=== PATIENT | male | born 1975 | race Caucasian/White ===

== ENCOUNTER → 2017-10-14 | Outpatient (CLI) | payer BC ==
--- NOTE | 2017-10-14 16:45 | US ---
EXAMINATION TYPE: US venous doppler duplex LE LT DATE OF EXAM: 10/14/2017 4:35 PM COMPARISON: NONE CLINICAL HISTORY: Left Lower Foot and Calf Pain M79.672. Swelling and bruising left ankle, no known p rior DVT, not on blood thinners SIDE PERFORMED: Left TECHNIQUE: The lower extremity deep venous system is examined utilizing real time linear array sonog negra with graded compression, doppler sonography and color-flow sonography. VESSELS IMAGED: External Iliac Vein (EIV) Common Femoral Vein Deep Femoral Vein Greater Saphenous Vein * Femoral Vein Popliteal Vein Small Saphenous Vein * Proximal Calf Veins (* superficial vessels) Left Leg: Negative for DVT Results called to Lisha at Dr's office at time of exam Grayscale, color doppler, spectral doppler imaging performed of the deep veins of the left lower extr emity. There is normal flow, compressibility, vascular waveforms. IMPRESSION: No ultrasound evidence for acute DVT in the left lower extremity.
== END ==
LOC: RADUSWWP 16:09
PROVIDERS: ATTEND Orthopaedic Surgery
DX: M25.572 Pain in left ankle and joints of left foot (principal)

== ENCOUNTER → 2019-08-21 | Outpatient (CLI) | payer BC ==
[2019-08-21 08:23] LABS: HGB 15.2 gm/dL (13.0-17.5); MCH 29.9 pg (25.0-35.0); MCHC 33.1 g/dL (31.0-37.0); MCV 90.3 fL (80.0-100.0); Mean Platelet Volume 7.4; Platelet Count 216 k/uL (150-450); RDW 12.9 % (11.5-15.5); WBC 5.8 k/uL (3.8-10.6)
[2019-08-21 10:32] LABS: ALT 34 U/L (10-49); AST 29 U/L (14-35); African American GFR (CKD) 85.9 (60.0-200.0); Albumin/Globulin Ratio 2.94 (1.60-3.17); Alkaline Phosphatase 60 U/L (41-126); Calcium 9.7 mg/dL (8.7-10.3); Carbon Dioxide 30.3 mmol/L (21.6-31.8); Chloride 106 mmol/L (96-109); Chol/HDL Ratio 2.77; Cholesterol 227 mg/dL (0-200); Globulin 1.6 g/dL (1.6-3.3); Glucose 108 mg/dL (70-110); Non-African American GFR(CKD) 74.1 (60.0-200.0); Potassium 4.7 mmol/L (3.5-5.5); Sodium 141 mmol/L (135-145); Total Bilirubin 0.7 mg/dL (0.2-1.2); Total Protein 6.3 g/dL (6.2-8.2); Triglycerides <50.0 mg/dL (0.0-149.0); Uric Acid 6.1 mg/dL (3.7-8.7)
== END | disposition home or self-care (01) ==
LOC: LABWHC1 07:38
PROVIDERS: ATTEND Family Medicine
DX: Z00.00 Encounter for general adult medical examination without abnormal findings (principal); M10.9 Gout, unspecified; R53.83 Other fatigue
CPT/HCPCS: 36415; 80053; 80061; 82306; 82607; 84439; 84443; 84550; 85027

== ENCOUNTER → 2020-09-08 | Outpatient (CLI) | payer BC ==
[2020-09-09 04:06] LABS: African American GFR (CKD) 106.4 (60.0-200.0); Albumin 5.2 g/dL (3.80-4.90); Albumin/Globulin Ratio 2.6 (1.60-3.17); Anion Gap 14.9 mmol/L (4.00-12.00); Calcium 10.3 mg/dL (8.7-10.3); Carbon Dioxide 23.1 mmol/L (21.6-31.8); Chol/HDL Ratio 3.48; Non-African American GFR(CKD) 91.8 (60.0-200.0); Total Bilirubin 0.4 mg/dL (0.2-1.2); Total Protein 7.2 g/dL (6.2-8.2)
== END | disposition home or self-care (01) ==
LOC: LABWHC1 10:51
PROVIDERS: ATTEND Family Medicine
DX: I26.99 Other pulmonary embolism without acute cor pulmonale (principal)
CPT/HCPCS: 36415; 80053; 80061; 82306; 82607; 84550

== ENCOUNTER → 2024-04-21 | Outpatient (CLI) | payer BC ==
[2024-04-21 15:49] VITALS: BP 133/83; PULSE 64; RESP 16; TEMP 97.9
--- NOTE | 2024-04-21 16:10 | P.SLEEP ---
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 The patient has noted by his that he snores very loud and stops breathing and the patient has been complaining of excessive tiredness and sleepiness during the day. Is affecting his day-to-day functionality. The patient has currently an [place] score of 18. He has gained around 20 pounds over the past 10 years. Sometimes he struggles to stay awake while driving. However, the patient has not been involved in a motor vehicle accidents because of feeling drowsy or sleepy. Does not drink alcohol. Does not smoke. He has hypertension hyperlipidemia previous history of melanoma that has been surgically resected. No sleepwalking. No sleep talking. No insomnia. No nocturia. No restlessness in lower extremities. No heartburn. No nighttime chest pain or shortness of breath. No problems with concentration or memory. No sleepwalking. No sleep talking. No other symptoms of parasomnia. No head trauma. No substance abuse. Review of Systems Constitutional: Reports daytime sleepiness, Reports fatigue, Reports weight gain Eyes: denies as per HPI, denies blurred vision, denies bulging eye, denies decreased vision, denies diplopia, denies discharge, denies dry eye, denies irritation, denies itching, denies pain, denies photophobia, denies loss of peripheral vision, denies loss of vision, denies tunnel vision/blind spots Ears: deny: decreased hearing, ear discharge, earache, tinnitus Ears, nose, mouth and throat: Reports as per HPI Breasts: absent: as per HPI, gynecomastia Cardiovascular: Reports as per HPI Respiratory: Reports as per HPI Gastrointestinal: Reports as per HPI Genitourinary: Reports as per HPI Musculoskeletal: Reports as per HPI Musculoskeletal: absent: ankle pain, ankle stiffness, ankle swelling, as per HPI, elbow pain, elbow stiffness, elbow swelling, foot pain, foot stiffness, foot swelling, hand pain, hand stiffness, hand swelling, hip pain, hip stiffness, hip swelling, knee pain, knee stiffness, knee swelling, shoulder pain, shoulder stiffness, shoulder swelling, wrist pain, wrist stiffness, wrist swelling Integumentary: Reports as per HPI Neurological: Reports as per HPI Psychiatric: Reports hypersomnia, Reports sleep disturbances Endocrine: Reports as per HPI, Reports fatigue Hematologic/Lymphatic: Reports as per HPI Allergic/Immunologic: Reports as per HPI Past Medical History Past Medical History: Cancer, Hyperlipidemia, Hypertension Additional Past Medical History / Comment(s): Melanoma - r lower leg, snoring History of Any Multi-Drug Resistant Organisms: None Reported Additional Past Surgical History / Comment(s): MELANOMA - R LOWER LEG Past Psychological History: Unable to Obtain Smoking Status: Never smoker Past Alcohol Use History: Occasional Past Drug Use History: None Reported - Past Family History Father Additional Family Medical History / Comment(s): SNORING (BROTHERS ALSO SNORE) Mother Family Medical History: Hypertension Physical Exam Vitals: Vital Signs Temp Pulse Resp BP Pulse Ox 04/21/24 15:48 97.9 F 64 16 133/83 97 Intake and Output 04/21/24 04/21/24 04/21/24 06:59 14:59 22:59 Other: Weight 124.001 kg The patient appeared well nourished and normally developed. Vital signs as documented. Head exam is unremarkable. No scleral icterus or corneal arcus noted. Neck is without jugular venous distension, thyromegaly, or carotid bruits. Carotid upstrokes are brisk bilaterally. The patient has chronic the posterior pharynx with a Mallampati class IV Lungs are clear to auscultation and percussion. Cardiac exam reveals the PMI to be normally sized and situated. Rhythm is r egular. First and second heart sounds normal. No murmurs, rubs or gallops. Abdominal exam reveals normal bowel sounds, no masses, no organomegaly and no aortic enlargement. Extremities are nonedematous and both femoral and pedal pulses are normal. Examination of the skin revealed no evidence of significant rashes, suspicious appearing nevi or other concerning lesions. Neurologically, the patient is awake and alert and the patient does not have any focal neurological deficit. Cranial nerves are essentially intact. Assessment and Plan Plan: Hypersomnia with features to suggest obstructive sleep apnea with loud snoring, witnessed apneas and sleep fragmentation. The patient has an [place] score of 18. Obesity with a BMI of 39.1 Hypertension Hyperlipidemia History of melanoma involving the right lower extremity, surgically resected Plan High clinical suspicion for obstructive sleep apnea. Will perform a home sleep study to evaluate the presence of sleep apnea and decide a treatment accordingly Encourage weight loss, current body mass index is 39 Implement good sleep hygiene measures Maintain regular sleep schedule Avoid drinking at least 3 hours prior to going to bed Avoid driving especially when feeling drowsy or sleepy Will continue to follow Sleep Note - Sleep Data ESS Total: 18 - Sleep Note Sleep Note: Temperature: 97.9 F Pulse Rate: 64 Respiratory Rate: 16 Blood Pressure: 133/83 SpO2: 97 Height: 5 ft 10 in Weight: 124.001 kg BMI: Neck Circumference: 19.2
== END ==
LOC: 3 N SLEEP 14:46
PROVIDERS: ATTEND Internal Medicine Critical Care Medicine
CPT/HCPCS: 99211

== ENCOUNTER → 2024-04-28 | Outpatient (CLI) | payer BC ==
--- NOTE | 2024-05-05 22:35 | P.PCN ---
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 The patient has noted by his that he snores very loud and stops breathing and the patient has been complaining of excessive tiredness and sleepiness during the day. Is affecting his day-to-day functionality. The patient has currently an [place] score of 18. He has gained around 20 pounds over the past 10 years. Sometimes he struggles to stay awake while driving. However, the patient has not been involved in a motor vehicle accidents because of feeling drowsy or sleepy. Does not drink alcohol. Does not smoke. He has hypertension hyperlipidemia previous history of melanoma that has been surgically resected. No sleepwalking. No sleep talking. No insomnia. No nocturia. No restlessness in lower extremities. No heartburn. No nighttime chest pain or shortness of breath. No problems with concentration or memory. No sleepwalking. No sleep talking. No other symptoms of parasomnia. No head trauma. No substance abuse. Physical findings The patient has a weight of 273 pounds with a body mass index of 39.1 Technical description the beModel ApneaLink system was used to complete his home sleep study. This is a type III Home sleep study evaluation. This study duration was 8 hours and 47 minutes. The study started at 10:58 PM and the study ended at 8:45 AM. There was a total of 6 hours and 25 minutes of flow monitoring and 6024 minutes of oxygen saturation monitoring. Results The respiratory analysis showed a total of 10 obstructive apneas and 57 obstructive hypopneas and the resulting AHI was 10.4 consistent with mild obstructive sleep apnea Oxygenation analysis The patient had a baseline pulse ox while awake of 96%. Average pulse ox during sleep was 92% and the lowest pulse ox was 73%. Patient spent approximately 7 minutes of sleep time below pulse ox of 89% Cardiac summary The average heart rate was 68 with a minimum heart rate of 51 and a maximum heart rate of 237 Assessment Obstructive sleep apnea, mild with an AHI of 10.4 Hypersomnia with features to suggest obstructive sleep apnea with loud snoring, witnessed apneas and sleep fragmentation. The patient has an [place] score of 18 Obesity with a BMI of 39.1 Hypertension Hyperlipidemia History of melanoma involving the right lower extremity, surgically resected Plan Symptomatic mild obstructive sleep apnea, will benefit from CPAP therapy and the patient will be encouraged to come into the sleep center to undergo a CPAP titration Encourage weight loss, current body mass index is 39 Implement good sleep hygiene measures Maintain regular sleep schedule Avoid drinking at least 3 hours prior to going to bed Avoid driving especially when feeling drowsy or sleepy Will continue to follow
== END ==
LOC: 3 N SLEEP 10:53
PROVIDERS: ATTEND Internal Medicine Critical Care Medicine
DX: G47.33 Obstructive sleep apnea (adult) (pediatric) (principal); G47.10 Hypersomnia, unspecified; G47.8 Other sleep disorders; E66.9 Obesity, unspecified; I10 Essential (primary) hypertension; E78.5 Hyperlipidemia, unspecified; Z85.820 Personal history of malignant melanoma of skin; Z68.39 Body mass index [BMI] 39.0-39.9, adult

== ENCOUNTER 2024-05-21 19:50 | Outpatient (CLI) | payer BC ==
--- NOTE | 2024-05-26 00:34 | P.PCN ---
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 The patient has noted by his that he snores very loud and stops breathing and the patient has been complaining of excessive tiredness and sleepiness during the day. Is affecting his day-to-day functionality. The patient has currently an [place]rock[place] score of 18. He has gained around 20 pounds over the past 10 years. Sometimes he struggles to stay awake while driving. However, the patient has not been involved in a motor vehicle accidents because of feeling drowsy or sleepy. Does not drink alcohol. Does not smoke. He has hypertension hyperlipidemia previous history of melanoma that has been surgically resected. No sleepwalking. No sleep talking. No insomnia. No nocturia. No restlessness in lower extremities. No heartburn. No nighttime chest pain or shortness of breath. No problems with concentration or memory. No sleepwalking. No sleep talking. No other symptoms of parasomnia. No head trauma. No substance abuse. The patient underwent a home sleep study and the patient was found to have mild obstructive sleep apnea with an AHI of 10.4. The patient is coming in for a CPAP titration study. Noted his sleep quality is poor and the patient is having sleep fragmentation with chronic hypersomnia sleepiness with an Throckmorton score of 18. Pertinent physical findings Height is 5 feet and 10 inches, weight is 273 pounds with a body mass index of 39.2 Technical description The patient was studied using a standard complex polysomnography protocol that included recording of the Lead II EKG, Central, occipital and frontal EEG, right and left outer canthus EOG, submental EMG, right and left anterior tibialis EMG, respiratory airflow by thermocouple and or pressure/flow transducer, respiratory efforts by abdominal and thoracic PVDF belts, oxygen saturation by cable oximetry. Position by observation synchronized the PSG. Equipment used: [employer]. Sleep architecture The total recording duration was 411.5 minutes. Total sleep time was 383.5 minutes. The overall sleep efficiency was 93.2%. The latency to sleep onset was 7.5 minutes and the latency to REM sleep was 69.5 minutes. The sleep architecture was characterized by 2.1% stage I, 62.7% stage II, 8% stage III and a total of 27.2% REM sleep. The total arousal index was 4.1. The wake after sleep onset time was 20 minutes CPAP titration summary The patient was started on CPAP therapy initially at a pressure of 5 cm of water and the pressure was gradually increased by increments of 1 cm to reach a maximum CPAP pressure of 11 cm of water. This was a very successful titration. The patient was studied in various body positions. Patient was also started in REM and non-REM sleep. A pressure of 11 cm of water, there was complete elimi [place] of the obstructive respiratory events without any significant nocturnal oxygen saturations. Sleep continuity summary Patient had a total of 26 arousals with an index of 4.1. The respiratory a rousal index was 0 Periodic limb movement The patient a total of 125 periodic limb movement activity with an index of 19.6. There was only 1 periodic limb movement activity with a arousal with an index of 0. 2 Cardiac summary The average heart rate was 67 with a minimum heart rate of 62 and a maximum heart rate of 74 Assessment Obstructive sleep apnea, mild with an AHI of 10.4 and the patient underwent a successful CPAP titration with elevation of the obstructive respiratory events at the completion of the titration. Hypersomnia with features to suggest obstructive sleep apnea with loud snoring, witnessed apneas and sleep fragmentation. The patient has an Throckmorton score of 18 Obesity with a BMI of 39.1 Hypertension Hyperlipidemia History of melanoma involving the right lower extremity, surgically resected Plan Initiate CPAP therapy at a pressure of 11 cm of water with a C-Flex of 3. The patient will be also offered an AirFit F 30 I medium size fullface mask. Encourage weight loss, current body mass index is 39 Implement good sleep hygiene measures Maintain regular sleep schedule Avoid drinking at least 3 hours prior to going to bed Avoid driving especially when feeling drowsy or sleepy Will continue to follow and the patient was seen back in the office in 30 to 90 days to assess clinical response and compliancy.
== END 2024-05-22 05:30 | disposition home or self-care (01) ==
LOC: 3 N SLEEP 19:50
PROVIDERS: ATTEND Internal Medicine Critical Care Medicine
DX: Z08 Encounter for follow-up examination after completed treatment for malignant neoplasm (principal); G47.33 Obstructive sleep apnea (adult) (pediatric); G47.10 Hypersomnia, unspecified; I10 Essential (primary) hypertension; E78.5 Hyperlipidemia, unspecified; E66.9 Obesity, unspecified; G47.8 Other sleep disorders; Z85.820 Personal history of malignant melanoma of skin; Z98.890 Other specified postprocedural states; Z68.39 Body mass index [BMI] 39.0-39.9, adult
CPT/HCPCS: 95811

== ENCOUNTER 2025-01-24 22:21 | Emergency (ER) | payer BC ==
[2025-01-24 22:28] VITALS: TEMP 97.8
--- NOTE | 2025-01-24 23:14 | ED ---
General Adult HPI - General Chief complaint: Syncope Stated complaint: Syncope Time Seen by Provider: 01/24/25 22:23 Source: patient, EMS Mode of arrival: EMS - History of Present Illness Initial comments: Patient is a 49-year-old male, past medical history of hypertension presenting today for syncopal episode. Patient states that he was outside throughout the day today in the heat at the [place]" festival. Afterwards they went out on his boat and he had a few alcoholic beverages. They returned home and shortly for eating dinner patient got up from the [facility] and upon walking towards his bedroom suddenly lost consciousness. He did state he had mildly headedness prior to this. He does not believe he hit his head. He denies headache or neck pain. He is not on blood thinners. This is never happened before. Patient's witnessed the fall, and upon walking over him his eyes were open and he was awake and alert, had returned to baseline. EMS did report the patient was hypotensive on their arrival and his symptoms improved with IV fluid administration. Patient is not on blood thinners. Denies history of PE or DVT. No history of clotting disorders., Is a non- smoker. No history of recently treated malignancy in the last 6 months. No recent travel surgery hospitalization. Is not on hormone replacement therapy. Currently denies chest pain, difficulty in breathing, numbness, focal weakness, changes in vision, dizziness, abdominal pain, nausea, vomiting, fevers, diarrhea, melena, hematochezia - Related Data Allergies Allergy/AdvReac Type Severity Reaction Status Date / Time No Known Allergies Allergy Verified 01/24/25 22:28 Review of Systems ROS Statement: Those systems with pertinent positive or pertinent negative responses have been documented in the HPI. ROS Other: All systems not noted in ROS Statement are negative. Past Medical History Past Medical History: Cancer, Hyperlipidemia, Hypertension Additional Past Medical History / Comment(s): Melanoma - r lower leg, snoring History of Any Multi-Drug Resistant Organisms: None Reported Additional Past Surgical History / Comment(s): MELANOMA - R LOWER LEG Past Psychological History: Unable to Obtain Smoking Status: Never smoker Past Alcohol Use History: Occasional Past Drug Use History: None Reported - Past Family History Father Additional Family Medical History / Comment(s): SNORING (BROTHERS ALSO SNORE) Mother Family Medical History: Hypertension General Exam - General Exam Comments Initial Comments: PE: CONSTITUTIONAL: [no apparent distress, well appearing] SKIN: [warm, dry, no jaundice, hives or petechiae] EYES:[ pupils are equally round, extraocular movements intact without nystagmus, clear conjunctiva, non-icteric sclera] HENT: [normocephalic, atraumatic, moist mucus membranes, oropharynx clear without exudates] NECK: , [Full range of motion, normal appearance] no midline spinal tenderness palpation PULMONARY: [clear to auscultation without wheezes, rhonchi, or rales, normal excursion, no accessory muscle use and no stridor] CARDIOVASCULAR:[ regular rate, rhythm, normal S1 and S2. No appreciated murmurs, rubs or gallops. Strong radial pulses with intact distal perfusion. No lower extremity edema] GASTROINTESTINAL: [soft, active bowel sounds throughout, non-tender, non- distended, no palpable masses, no rebound or guarding. No hepatosplenomegaly] GENITOURINARY: MUSCULOSKELETAL: [Extremities have no gross deformity, no edema, redness, or swelling. No calf swelling ] NEUROLOGIC: [_a/o x 3, GCS 15, normal mentation and speech. Moves all extremities x 4 without motor or sensory deficit] PSYCHIATRIC:[ _normal mood and affect, thought process is clear and linear] Course Vital Signs 01/24/25 01/24/25 01/25/25 22:23 23:33 00:32 Temperature 97.8 F Pulse Rate 81 76 73 Respiratory 18 18 20 Rate Blood Pressure 87/66 95/51 101/58 O2 Sat by Pulse 93 L 97 94 L Oximetry EKG Findings - EKG Comments: EKG Findings:: Sinus rhythm rate 81 bpm normal axis, normal intervals, no significant ST elevations or depressions no arrhythmia, no Brugada pattern or delta waves Medical Decision Making - Medical Decision Making Was pt. sent in by a medical professional or institution (, PA, LIVESTOCK BRANDS INSPECTOR, urgent care, hospital, or fpc...) When possible be specific @ -[No] Did you speak to anyone other than the patient for history (EMS, parent, family, police, friend...)? What history was obtained from this source @ -[No] Did you review nursing and triage notes (agree or disagree)? Why? @ -[I reviewed nursing and triage notes]-Triage note states patient presents following a syncopal episode from standing, minimal loss of consciousness no pain no blood thinners Were old charts reviewed (outside hosp., previous admission, EMS record, old EKG, old radiological studies, urgent care reports/EKG's, fpc records)? Report findings @ -[Medical records reviewed]Patient had ultrasound for DVT done on 10/14/17 showed no DVT Differential Diagnosis (chest pain, altered mental status, abdominal pain women, abdominal pain men, vaginal bleeding, weakness, fever, dyspnea, syncope, headache, dizziness, GI bleed, back pain, seizure, CVA, palpatations, mental health, musculoskeletal)? Differential diagnosis remains broad however top considerations include Valvular disease, hypertrophic cardiomyopathy, pulmonary embolism, tamponade, tachycardia, bradycardia, MO, hypovolemia, hemorrhage, dissection, anemia, intracranial hemorrhage, seizure, hypoglycemia, carbon monoxide poisoning, this is not meant to be an all-inclusive list. EKG interpreted by me (3pts min.). @ -[As above] X-rays interpreted by me (1pt min.). @ -Reviewed chest x-ray see no evidence of consolidations, cardiomegaly or pneumothorax CT interpreted by me (1pt min.). @ -[None done] U/S interpreted by me (1pt. min.). @ -[None done] What testing was considered but not performed or refused? (CT, X-rays, U/S, labs)? Why? @ -[None] What meds were considered but not given or refused? Why? @ -[None] Did you discuss the management of the patient with other professionals (professionals i.e. , PA, LIVEST[employer] BRANDS INSPECTOR, lab, RT, psych nurse, social work supervisor, paper sheeter, teacher, records officer, assistant case manager)? Give summary @ -[No] Was smoking cessation discussed for >3mins.? @ -[No] Was critical care preformed (if so, how long)? @ -[No] Were there social determinants of health that impacted care today? How? (Homelessness, low income, unemployed, alcoholism, drug addiction, transportation, low edu. Level, literacy, decrease access to med. care, residential, rehab)? @ -[No] Was there de-escalation of care discussed even if they declined (Discuss DNR or withdrawal of care, Hospice)? @ -[No] What co-morbidities impacted this encounter? (DM, HTN, Smoking, COPD, CAD, Cancer, CVA, ARF, Chemo, Hep., AIDS, mental health diagnosis, sleep apnea, morbid obesity)? @Hypertension Was patient admitted / discharged? Hospital course, mention meds given and route, prescriptions, significant lab abnormalities, going to OR and other pe rtinent info. @ -[hospital course] this is a pleasant 49-year-old gentleman presenting today for syncopal episode after being in the heat throughout the day today. 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 Vital signs on arrival show blood pressure 87/66, patient does have a MAP of 72 despite hypotension, no tachycardia, pulse ox on arrival 93%, however 98% on room air on my assessment exam reassuring and unremarkable. Discussed with patient plan for labs, EKG IV fluids to which she was agreeable. Of note while being observed in the ER, patient pulse ox went down to 94% while sleeping slouched over, subsequently raises when awake and sitting up Labs are significant for mild leukocytosis white blood cell 11.98, D-dimer within normal limits 0.33, bicarb 20, creatinine 1.26, GFR 67, I suspect elevated creatinine secondary to volume depletion, CK slightly elevated range at 30, however no blood on urinalysis, blood alcohol 188. Chest x-ray showed no cardiomegaly, consolidations, pneumothorax or pleural effusions. Updated patient and to findings. I suspect symptoms today were secondary to volume depletion and alcohol intoxication. In my medical judgment there is currently no evidence of an immediate life- threatening or surgical condition. Discharge is therefore indicated at this time. [Discharge treatment instructions, follow up instructions, and appropriate emergency department return precautions were discussed with the patient and/or medical decision maker. Patient and/or medical decision maker expressed understanding of and agreed with the treatment plan, follow up instructions, and emergency department return precaution. All patient's and/or medical decision maker's questions were answered.] [The patient was advised that a small risk still exists that a serious condition could develop and was therefore instructed to return to the ED for any changes in symptoms, persistent symptoms, inability to obtain proper follow-up or for any further concerns. Patient received verbal and written instructions for this condition.] Undiagnosed new problem with uncertain prognosis? @ -[No] Drug Therapy requiring intensive monitoring for toxicity (Heparin, Nitro, Insulin, Cardizem)? @ -[No] Were any procedures done? @ -[No] Diagnosis/symptom? @Syncope, dehydration, alcohol tox patient Acute, or Chronic, or Acute on Chronic? @ -Acute Uncomplicated (without systemic symptoms) or Complicated (systemic symptoms)? @ complicated Side effects of treatment? @ -[No] Exacerbation, Progression, or Severe Exacerbation? @ -[No] Poses a threat to life or bodily function? How? (Chest pain, USA, MO, pneumonia, PE, COPD, DKA, ARF, appy, cholecystitis, CVA, Diverticulitis, Homicidal, Suicidal, threat to staff... and all critical care pts) @ -[No] - Lab Data Result diagrams: 01/24/25 23:06 01/24/25 23:06 Lab Results 01/24/25 01/24/25 01/24/25 Range/Units 23:06 23:06 23:06 WBC 11.98 H (4.50-10.00) 10*3/uL RBC 4.44 (4.40-5.60) 10*6/uL Hgb 14.1 (13.0-17.0) g/dL Hct 40.4 (39.6-50.0) % MCV 91.0 (80.0-97.0) fL MCH 31.8 (27.0-32.0) pg MCHC 34.9 (32.0-37.0) g/dL Plt Count 224 (140-440) 10*3/uL MPV 10.1 (9.5-12.2) fL Immature Gran % (Auto) 0.6 % Neutrophils % 47.7 % Lymphocytes % 40.1 % Monocytes % 8.9 % Eosinophils % 1.5 % Basophils % 1.2 % Immature Gran # 0.07 H (0.00-0.04) 10*3/uL Neutrophils # 5.72 (1.80-7.70) 10*3/uL Lymphocytes # 4.80 (0.90-5.00) 10*3/uL Monocytes # 1.07 H (0.20-1.00) 10*3/uL Eosinophils # 0.18 (0.04-0.35) 10*3/uL Basophils # 0.14 H (0.00-0.10) 10*3/uL PT 10.8 (10.0-12.5) sec INR 1.0 (<1.2) APTT 19.6 L (22.0-30.0) sec D-Dimer 0.33 (<0.60) mg/L FEU Sodium 142 (137-145) mmol/L Potassium 3.5 (3.5-5.1) mmol/L Chloride 105 (98-107) mmol/L Carbon Dioxide 20 L (22-30) mmol/L Anion Gap 17 mmol/L BUN 19 (9-20) mg/dL Creatinine 1.26 H (0.66-1.25) mg/dL Est GFR (CKD-EPI)AfAm 78 (>60 ml/min/1.73 sqM) Est GFR (CKD-EPI)NonAf 67 (>60 ml/min/1.73 sqM) Glucose 130 H (74-99) mg/dL Calcium 9.4 (8.4-10.2) mg/dL Magnesium 1.8 (1.6-2.3) mg/dL Total Bilirubin 0.4 (0.2-1.3) mg/dL AST 35 (17-59) U/L ALT 30 (4-49) U/L Alkaline Phosphatase 60 (38-126) U/L Creatine Kinase (55-170) U/L Troponin I (0.000-0.034) ng/mL Total Protein 6.3 (6.3-8.2) g/dL Albumin 4.2 (3.5-5.0) g/dL Urine Color Urine Appearance (Clear) Urine pH (5.0-8.0) Ur Specific Basile (1.001-1.035) Urine Protein (Negative) Urine Glucose (UA) (Negative) Urine Ketones (Negative) Urine Blood (Negative) Urine Nitrite (Negative) Urine Bilirubin (Negative) Urine Urobilinogen (<2.0) mg/dL Ur Leukocyte Esterase (Negative) Serum Alcohol 188 mg/dL 01/24/25 01/24/25 01/24/25 Range/Units 23:06 23:06 23:44 WBC (4.50-10.00) 10*3/uL RBC (4.40-5.60) 10*6/uL Hgb (13.0-17.0) g/dL Hct (39.6-50.0) % MCV (80.0-97.0) fL MCH (27.0-32.0) pg MCHC (32.0-37.0) g/dL Plt Count (140-440) 10*3/uL MPV (9.5-12.2) fL Immature Gran % (Auto) % Neutrophils % % Lymphocytes % % Monocytes % % Eosinophils % % Basophils % % Immature Gran # (0.00-0.04) 10*3/uL Neutrophils # (1.80-7.70) 10*3/uL Lymphocytes # (0.90-5.00) 10*3/uL Monocytes # (0.20-1.00) 10*3/uL Eosinophils # (0.04-0.35) 10*3/uL Basophils # (0.00-0.10) 10*3/uL PT (10.0-12.5) sec INR (<1.2) APTT (22.0-30.0) sec D-Dimer (<0.60) mg/L FEU Sodium (137-145) mmol/L Potassium (3.5-5.1) mmol/L Chloride (98-107) mmol/L Carbon Dioxide (22-30) mmol/L Anion Gap mmol/L BUN (9-20) mg/dL Creatinine (0.66-1.25) mg/dL Est GFR (CKD-EPI)AfAm (>60 ml/min/1.73 sqM) Est GFR (CKD-EPI)NonAf (>60 ml/min/1.73 sqM) Glucose (74-99) mg/dL Calcium (8.4-10.2) mg/dL Magnesium (1.6-2.3) mg/dL Total Bilirubin (0.2-1.3) mg/dL AST (17-59) U/L ALT (4-49) U/L Alkaline Phosphatase (38-126) U/L Creatine Kinase 330 H (55-170) U/L Troponin I <0.012 (0.000-0.034) ng/mL Total Protein (6.3-8.2) g/dL Albumin (3.5-5.0) g/dL Urine Color Colorless Urine Appearance Clear (Clear) Urine pH 6.0 (5.0-8.0) Ur Specific Basile 1.003 (1.001-1.035) Urine Protein Trace H (Negative) Urine Glucose (UA) Negative (Negative) Urine Ketones Negative (Negative) Urine Blood Negative (Negative) Urine Nitrite Negative (Negative) Urine Bilirubin Negative (Negative) Urine Urobilinogen <2.0 (<2.0) mg/dL Ur Leukocyte Esterase Negative (Negative) Serum Alcohol mg/dL Disposition Clinical Impression: Syncope, Dehydration Condition: Good Instructions (If sedation given, give patient instructions): Syncope (ED), Hypotension (DC) Additional Instructions: Every disease is a spectrum and a small chance still exists that a serious condition could develop, for this reason, please monitor yourself closely for new, changing or worsening symptoms, further episodes of passing out, any chest pain or shortness of breath, inability to tolerate/keep down fluids or your medications, inability to follow up with outpatient providers as instructed and should you experience these symptoms or should you have any further concerns for your wellbeing please return to the ED or call 911 immediately. [facility] law states that you are unable to drive or operate heavy machinery for 6 months after seizure or syncopal event. Please follow-up with your PCP for clearance. Please drink plenty of noncaffeinated, nonalcohol containing fluids over the next 48 hours. Follow up with your PCP within 1-3 days for recheck of kidney function. PLEASE call your primary care physician as soon as possible to arrange / discuss plan for followup appointment. Appointment in the next 1-3 days is strongly encouraged if possible. PLEASE let us know here before you leave if there is anything further we can do to be of any assistance. Take care and feel Better! Is patient prescribed a controlled substance at d/c from ED?: No Referrals: Yessy Smith MD [Primary Care Provider] - 1-2 days
[2025-01-24] MEDS: SODIUM CHLORIDE 0.9% 1,000 ML IV STA (23:30)
[2025-01-24 23:36] LABS: ALT 30 U/L (4-49); AST 35 U/L (17-59); African American GFR (CKD) 78 (>60 ml/min/1.73 sqM); Albumin 4.2 g/dL (3.5-5.0); Alkaline Phosphatase 60 U/L (38-126); Anion Gap 17 mmol/L; Blood Urea Nitrogen 19 mg/dL (9-20); Calcium 9.4 mg/dL (8.4-10.2); Carbon Dioxide 20 mmol/L (22-30); Chloride 105 mmol/L (98-107); Glucose 130 mg/dL (74-99); Magnesium 1.8 mg/dL (1.6-2.3); Non-African American GFR(CKD) 67 (>60 ml/min/1.73 sqM); Potassium 3.5 mmol/L (3.5-5.1); Sodium 142 mmol/L (137-145); Total Protein 6.3 g/dL (6.3-8.2)
[2025-01-24 23:58] LABS: Basophils # (A) 0.14 10*3/uL (0.00-0.10); Basophils % (A) 1.2 %; Eosinophils # (A) 0.18 10*3/uL (0.04-0.35); Eosinophils % (A) 1.5 %; HCT 40.4 % (39.6-50.0); HGB 14.1 g/dL (13.0-17.0); Lymphocytes # (A) 4.80 10*3/uL (0.90-5.00); Lymphocytes % (A) 40.1 %; MCH 31.8 pg (27.0-32.0); MCHC 34.9 g/dL (32.0-37.0); MCV 91.0 fL (80.0-97.0); Monocytes # (A) 1.07 10*3/uL (0.20-1.00); Monocytes % (A) 8.9 %; Neutrophils # (A) 5.72 10*3/uL (1.80-7.70); Neutrophils % (A) 47.7 %; Platelet Count 224 10*3/uL (140-440); RBC 4.44 10*6/uL (4.40-5.60); RDW 12.9 % (11.5-14.5); WBC 11.98 10*3/uL (4.50-10.00)
[2025-01-25 00:14] LABS: INR 1.0 (<1.2); Prothrombin Time 10.8 sec (10.0-12.5)
[2025-01-25 00:16] LABS: Bilirubin,Urine Negative (Negative); Blood,Urine Negative (Negative); Color,Urine Colorless; Glucose,Urine (UA) Negative (Negative); Ketones,Urine Negative (Negative); Leukocyte Esterase,Urine Negative (Negative); Nitrite,Urine Negative (Negative); PH, Urine 6.0 (5.0-8.0); Protein,Urine Trace (Negative); Specific Gravity,Urine 1.003 (1.001-1.035); Urobilinogen,Urine <2.0 mg/dL (<2.0)
[2025-01-25 00:32] VITALS: BP 101/58
[2025-01-25 00:33] LABS: Partial Thromboplastin Time 19.6 sec (22.0-30.0)
--- NOTE | 2025-01-25 01:40 | XR ---
EXAM: XR Chest, 2 Views CLINICAL HISTORY: ITS.REASON XR Reason: syncope TECHNIQUE: Frontal and lateral views of the chest. COMPARISON: No relevant prior studies available. FINDINGS: Lungs: No consolidation or mass. Pleural space: No effusion. Heart: No cardiomegaly. Bones/joints: No acute findings. IMPRESSION: No acute cardiopulmonary process.
[2025-01-25 01:52] VITALS: PULSE 75; RESP 18
== END 2025-01-25 01:52 ==
LOC: EC 22:21
DX: E86.0 Dehydration (principal); R55 Syncope and collapse; I10 Essential (primary) hypertension
CPT/HCPCS: 36415; 71046; 80053; 80320; 81003; 82550; 83735; 84484; 85025; 85379; 85610; 85730; 93005; 96360; 99284